=== PATIENT | male | born 1935 | race Caucasian/White ===

== ENCOUNTER → 2016-06-20 | Outpatient (CLI) | payer MEDICARE, BC ==
[2013-08-05 11:00] VITALS: BP 110/65
[~2016-06-20] MED LIST: AMIO200T2 PO; ASPI325T70 PO; CLOP75TA27 PO; FERR-26 PO; METO25TA4 PO; NAPR550T3 PO; OMEG1CAP6 PO; OMEP20TA PO; OXYC-323 PO
== END | disposition home or self-care (01) ==
LOC: EKG 13:12
PROVIDERS: ATTEND Internal Medicine Cardiovascular Disease
DX: R00.1 Bradycardia, unspecified (principal)
CPT/HCPCS: 93225

== ENCOUNTER 2019-11-10 09:56 | Observation (INO) | payer MEDICARE ==
[~2019-11-10] VITALS: Ht 175.3 cm; Wt 75.4 kg
[~2019-11-10 09:56] MED LIST changes: -AMIO200T2 PO; +AMIO200T4 PO; -CLOP75TA27 PO; +CLOP75TA57 PO; -FERR-26 PO; +FERR325T14 PO; +NAPR-677 PO; -NAPR550T3 PO; -OMEP20TA PO; +OMEP20TA8 PO; -OXYC-323 PO; +OXYC1TAB15 PO
[2019-11-10] MEDS ORDERED: ASPIRIN CHEWABLE 81 MG TABLET. PO ONE (10:45)
[2019-11-10 10:46] LABS: BASO % 1 % (0-3); EOS # 0.2 x10^3/uL (0.0-0.7); EOS % 3 % (0-3); HEMATOCRIT 40.6 % (39.0-53.0); HEMOGLOBIN 13.6 g/dL (13.0-17.5); LYMPH # 0.5 x10^3/uL (1.0-4.8); LYMPH % 10 % (24-48); MEAN CORPUSCULAR HEMOGLOBIN 30 pg (25-35); MEAN CORPUSCULAR HGB CONC 34 g/dL (31-37); MEAN CORPUSCULAR VOLUME 89 fL (79-100); MONO # 0.6 x10^3/uL (0.0-1.1); MONO % 13 % (0-9); NEUT # 3.3 x10^3/uL (1.8-7.7); NEUT % 73 % (31-73); PLATELET COUNT 161 x10^3/uL (140-400); RED BLOOD COUNT 4.55 x10^6/uL (4.30-5.70); RED CELL DISTRIBUTION WIDTH 14.4 % (11.5-14.5); WHITE BLOOD COUNT 4.5 x10^3/uL (4.0-11.0)
--- NOTE | 2019-11-10 10:47 | EKG ---
[facility] [address] [place] [address] Test Date: 2019-11-10 Test Time: 10:09:15 Pat Name: CHARLENE PAK Department: Room: Gender: M Sales Consultant Residential Manager: : 1935 Requested By: WALT AQUINO Order Number: [id number] Reading MD: Measurements Intervals [place] Rate: 54 P: 49 WV: 198 QRS: -37 QRSD: 102 T: 60 QT: 416 QTc: 396 Interpretive Statements SINUS RHYTHM ABNORMAL LEFT AXIS DEVIATION INCOMPLETE RIGHT BUNDLE BRANCH BLOCK ABNORMAL ECG RI6.02 No previous ECG available for comparison
--- NOTE | 2019-11-10 10:48 | PHYS DOC ---
Past Medical History Past Medical History: GERD, High Cholesterol, Prostatitis Past Surgical History: Coronary Bypass Surgery, Other Additional Past Surgical Histo: "SEVERAL STENTS" Smoking Status: Former Smoker Alcohol Use: Occasionally General Adult EDM: Chief Complaint: CHEST PAIN HPI: HPI: Patient is a 84 year old male who presents with chest pain. Patient was in his normal state of health until a little after 7 this morning when he had right- sided chest pain radiated to the center of the chest. Pain was described as a sharp in nature and 8 of 10 at the worst and currently 0. Pain was worse with walking. Patient denies any shortness of breath, nausea vomiting or recent illnesses. Patient states he was diaphoretic AT onset Review of Systems: Review of Systems: Constitutional: Denies fever or chills. [] Eyes: Denies change in visual acuity. [] HENT: Denies nasal congestion or sore throat. [] Respiratory: Denies cough or shortness of breath. [] Cardiovascular: Complains of chest pain but no edema GI: Denies abdominal pain, nausea, vomiting, bloody stools or diarrhea. [] : Denies dysuria. [] Musculoskeletal: Denies back pain or joint pain. [] Integument: Denies rash. [] Neurologic: Denies headache, focal weakness or sensory changes. [] Endocrine: Denies polyuria or polydipsia. [] Lymphatic: Denies swollen glands. [] Psychiatric: Denies depression or anxiety. [] Heart Score: HEART Score for Chest Pain: HEART Score for Chest Pain Response (Comments) Value History Moderately Suspicious 1 ECG Nonspecific Repolarizatio 1 Age > 65 2 Risk Factors >3 Risk Factors or Hx CAD 2 Troponin < Normal Limit 0 Total 6 Risk Factors: Risk Factors: DM, Current or recent (<one month) smoker, HTN, HLP, family history of CAD, obesity. Risk Scores: Score 0 - 3: 2.5% MACE over next 6 weeks - Discharge Home Score 4 - 6: 20.3% MACE over next 6 weeks - Admit for Clinical Observation Score 7 - 10: 72.7% MACE over next 6 weeks - Early Invasive Strategies Current Medications: Current Medications Medications (Trade) Dose Ordered Sig/Nate Start Time Stop Time Status Last Admin Dose Admin Aspirin (Aspirin Chewable) 324 mg 1X ONCE 11/10/19 10:45 9/10/20 10:46 DC Allergies: Allergies: Allergies Coded Allergies Type Severity Reaction Last Updated Verified No Known Drug Allergies 08/01/13 No Physical Exam: PE: Constitutional: Well developed, well nourished, no acute distress, non-toxic appearance. [] HENT: Normocephalic, atraumatic, bilateral external ears normal, no trismus nose normal. [] Eyes: PERRLA, EOMI, conjunctiva normal, no discharge. [] Neck: Normal range of motion, no tenderness, supple, no stridor. [] Cardiovascular:Heart rate regular rhythm, peripheral pulses intact, cap refill brisk Lungs & Thorax: Bilateral breath sounds clear, no respiratory distress Abdomen: soft, no tenderness, no masses, no pulsatile masses. [] Skin: Warm, dry, no erythema, no rash. [] Back: No tenderness, no CVA tenderness. [] Extremities: No tenderness, no cyanosis, no clubbing, ROM intact, no edema. [] Neurologic: Alert and oriented X 3, normal motor function, normal sensory function, no focal deficits noted. [] Psychologic: Affect normal, judgement normal, mood normal. [] Current Patient Data: Vital Signs: Vital Signs Date Time Temp Pulse Resp B/P (MAP) Pulse Ox O2 Delivery O2 Flow Rate FiO2 11/10/19 10:18 98.0 57 20 151/73 (99) 99 Room Air 98.0 EKG: EKG: [] EKG interpreted by me sinus bradycardia with a rate of 54 left axis deviation right bundle branch block nonspecific ST changes Radiology/Procedures: Radiology/Procedures: [][facility] [address] [place], [place] [id number] IMAGING REPORT Signed PATIENT: CHARLENE PAK ACCOUNT: [id number] : 1935 LOCATION: ER AGE: 84 SEX: M EXAM STATUS: REG ER ORD. PHYSICIAN: WALT AQUINO MD REASON: chest pain PROCEDURE: PORTABLE CHEST 1V PORTABLE CHEST 1V 11/10/2019 10:35 AM INDICATION: Chest pain COMPARISON: 07/19/2013 TECHNIQUE: Portable frontal view of the chest is provided. FINDINGS: The cardiomediastinal silhouette is within normal limits. Lungs are clear. Median sternotomy changes are present. There are no significant pleural effusions. There is no pulmonary vascular congestion. No pneumothorax. No suspicious osseous abnormality. IMPRESSION: There is no acute cardiopulmonary process. Electronically signed by: Emily Ruffin MD (11/10/2019 11:46 AM) [id number] DICTATED and SIGNED BY: EMILY RUFFIN MD DATE: 11/10/19 1146 Course & Med Decision Making: Course & Med Decision Making Pertinent Labs and Imaging studies reviewed. (See chart for details) [] 84-year-old male presents with chief complaint of chest pain. EKG shows no acute ischemic changes but due to his significant history of cardiac work-up was initiated and is reassuring but patient will need further observation hospital. Patient be admitted to for further evaluation and treatment. Che Disclaimer: Dragreyes Disclaimer: This electronic medical record was generated, in whole or in part, using a voice recognition dictation system. Departure Departure Impression: Primary Impression: Chest pain Disposition: ADMITTED INPATIENT Admitting Physician: SONG (Hema) Condition: STABLE Referrals: MAEGAN ERICKSON MD (PCP) Justicifation of Admission Dx: Justifications for Admission: Justification of Admission Dx: Yes (CHEST PAIN, LOREN) WALT AQUINO MD Nov 10, 2019 10:48
[2019-11-10 10:55] LABS: CALCIUM 8.9 mg/dL (8.5-10.1); CREATININE 1.3 mg/dL (0.7-1.3); GFR 52.7; POTASSIUM 4.1 mmol/L (3.5-5.1)
[2019-11-10 10:56] LABS: PROTHROMBIN TIME PATIENT 13.2 SEC (11.7-14.0)
[2019-11-10 11:01] LABS: ALBUMIN 3.7 g/dL (3.4-5.0); ALBUMIN/GLOBULIN RATIO 1.2 (1.0-1.7); MAGNESIUM 2.2 mg/dL (1.8-2.4); TOTAL BILIRUBIN 0.5 mg/dL (0.2-1.0); TOTAL PROTEIN 6.8 g/dL (6.4-8.2)
[2019-11-10 11:20] LABS: D-DIMER 0.31 ug/mlFEU (0.00-0.50)
--- NOTE | 2019-11-10 11:49 | RAD ---
PORTABLE CHEST 1V 11/10/2019 10:35 AM INDICATION: Chest pain COMPARISON: 07/19/2013 TECHNIQUE: Portable frontal view of the chest is provided. FINDINGS: The cardiomediastinal silhouette is within normal limits. Lungs are clear. Median sternotomy changes are present. There are no significant pleural effusions. There is no pulmonary vascular congestion. No pneumothorax. No suspicious osseous abnormality. IMPRESSION: There is no acute cardiopulmonary process. Electronically signed by: Laverne Ocampo MD (11/10/2019 11:46 AM) [id number]
[2019-11-10] MEDS ORDERED: ONDANSETRON PF 4 MG/2 ML VIAL. IV PRN ×2 (12:15→12:30)
[2019-11-10] MEDS ORDERED: LORazepam 0.5 MG TABLET PO PRN (12:30)
[2019-11-10] MEDS ORDERED: ALBUTEROL SULFATE 2.5 MG/3 ML NEBU. NEB PRN (12:30)
[2019-11-10] MEDS ORDERED: oxyCODONE/APAP 5/325 1 TAB TABLET PO SCH (12:30)
[2019-11-10] MEDS ORDERED: DOCUSATE SODIUM 100 MG CAPSULE. PO PRN (12:30)
[2019-11-10] MEDS ORDERED: ZOLPIDEM 5 MG TABLET. PO PRN (12:30)
[2019-11-10] MEDS ORDERED: guaiFENesin ORAL 200 MG/10 ML LIQUID. PO PRN (12:30)
[2019-11-10] MEDS ORDERED: ENOXAPARIN 40 MG/0.4 ML SYRINGE. SQ SCH (13:00)
--- NOTE | 2019-11-10 13:10 | PDOC2 ---
NICOLE CORONEL WAX PATTERN REPAIRER 11/10/19 1310: CARDIAC CONSULT DATE OF CONSULT Date of Consult DATE: 11/10/19 TIME: 13:08 REASON FOR CONSULT Reason for Consult: Chest pain REFERRING PHYSICIAN Referring Physician: Dr. Garrido SOURCE Source: Chart review, Patient HISTORY OF PRESENT ILLNESS HISTORY OF PRESENT ILLNESS This is an 84 yo male who presented secondary to right-sided chest pain. Patient reports stabbing pain developed in his right chest this morning around 7 am. Non-radiating. No associated SOA, dizziness, nausea, or palpitations. Did note some diaphoresis. No specific worsening or relieving factors. Pain resolved without intervention prior to arrival to ED. Patient has a history of CAD s/p CABG in 2013. Previously followed with Dr. Burt. Now follows with Dr. Dozier. Underwent PCI/stents x2 in November of 2018. No recent fevers/illness. Walks daily without any chest pain or limitations. PAST MEDICAL HISTORY Cardiovascular: CAD Musculoskeletal: Osteoarthritis Renal/: Other (renal calculi) PAST SURGICAL HISTORY Past Surgical History: CABG, Tonsillectomy FAMILY HISTORY Family History: Heart Disease SOCIAL HISTORY Smoke: No ALCOHOL: none Drugs: None Lives: with Family CURRENT MEDICATIONS CURRENT MEDICATIONS Current Medications Medications (Trade) Dose Ordered Sig/Nate Route PRN Reason Start Time Stop Time Status Last Admin Dose Admin Aspirin (Aspirin Chewable) 324 mg 1X ONCE PO 11/10/19 10:45 11/10/19 10:46 DC 11/10/19 11:01 ALLERGIES ALLERGIES: Coded Allergies: No Known Drug Allergies (Unverified , 08/01/13) ROS Review of System 14 point ROS conducted with pertinent positives noted above in HPI PHYSICAL EXAM General: Alert, Oriented X3, Cooperative, No acute distress HEENT: Atraumatic, Mucous membr. moist/pink Lungs: Clear to auscultation Heart: Regular rate, Normal S1, Normal S2, Other (2/6 systolic murmur) Abdomen: Soft, No tenderness Extremities: No edema, Normal pulses Skin: No significant lesion Neuro: Normal speech, Sensation intact, Cranial nerves 3-12 NL Psych/Mental Status: Mental status NL, Mood NL MUSCULOSKELETAL: Osteoarthritic changes both hands VITALS/I&O VITALS/I&O: Vital Signs Date Time Temp Pulse Resp B/P (MAP) Pulse Ox O2 Delivery O2 Flow Rate FiO2 9/10/20 10:18 98.0 57 20 151/73 (99) 99 Room Air 98.0 LABS Lab: Laboratory Tests Test 11/10/19 10:15 White Blood Count 4.5 x10^3/uL (4.0-11.0) Red Blood Count 4.55 x10^6/uL (4.30-5.70) Hemoglobin 13.6 g/dL (13.0-17.5) Hematocrit 40.6 % (39.0-53.0) Mean Corpuscular Volume 89 fL (79-100) Mean Corpuscular Hemoglobin 30 pg (25-35) Mean Corpuscular Hemoglobin Concent 34 g/dL (31-37) Red Cell Distribution Width 14.4 % (11.5-14.5) Platelet Count 161 x10^3/uL (140-400) Neutrophils (%) (Auto) 73 % (31-73) Lymphocytes (%) (Auto) 10 % (24-48) L Monocytes (%) (Auto) 13 % (0-9) H Eosinophils (%) (Auto) 3 % (0-3) Basophils (%) (Auto) 1 % (0-3) Neutrophils # (Auto) 3.3 x10^3/uL (1.8-7.7) Lymphocytes # (Auto) 0.5 x10^3/uL (1.0-4.8) L Monocytes # (Auto) 0.6 x10^3/uL (0.0-1.1) Eosinophils # (Auto) 0.2 x10^3/uL (0.0-0.7) Basophils # (Auto) 0.0 x10^3/uL (0.0-0.2) Prothrombin Time 13.2 SEC (11.7-14.0) Prothrombin Time INR 1.0 (0.8-1.1) D-Dimer (Noreen) 0.31 ug/mlFEU (0.00-0.50) Sodium Level 141 mmol/L (136-145) Potassium Level 4.1 mmol/L (3.5-5.1) Chloride Level 106 mmol/L (98-107) Carbon Dioxide Level 30 mmol/L (21-32) Anion Gap 5 (6-14) L Blood Urea Nitrogen 20 mg/dL (8-26) Creatinine 1.3 mg/dL (0.7-1.3) Estimated GFR (Cockcroft-Gault) 52.7 BUN/Creatinine Ratio 15 (6-20) Glucose Level 82 mg/dL (70-99) Calcium Level 8.9 mg/dL (8.5-10.1) Magnesium Level 2.2 mg/dL (1.8-2.4) Total Bilirubin 0.5 mg/dL (0.2-1.0) Aspartate Amino Transferase (AST) 20 U/L (15-37) Alanine Aminotransferase (ALT) 30 U/L (16-63) Alkaline Phosphatase 88 U/L (46-116) Troponin I Quantitative < 0.017 ng/mL (0.000-0.055) PO-Dpn-H-Type Natriuretic Peptide 220 pg/mL (0-449) Total Protein 6.8 g/dL (6.4-8.2) Albumin 3.7 g/dL (3.4-5.0) Albumin/Globulin Ratio 1.2 (1.0-1.7) Lipase 139 U/L (73-393) Laboratory Tests 11/10/19 10:15 Laboratory Tests 11/10/19 10:15 ECHOCARDIOGRAM ECHOCARDIOGRAM <Conclusion> The left ventricular systolic function is normal and the ejection fraction is within normal range. The Ejection Fraction is 56%. Transmitral Doppler flow pattern is Grade I-abnormal relaxation pattern. The left atrium size is normal. The right atrium size is normal. Doppler and Color Flow revealed mild aortic regurgitation. Doppler and Color Flow revealed mild mitral regurgitation. Doppler and Color Flow revealed mild tricuspid regurgitation. The PA pressure was estimated at 31 mmHg. Doppler and Color Flow revealed mild pulmonic valvular regurgitation. There is no evidence of significant pericardial effusion. DATE: 06/05/151809 HEART CATH HEART CATH Findings: Coronaries: The left main is normal. The LAD has a proximal 50% area stenosis and in the mid to distal segment its about 85% stenosed. The first diagonal is a long vessel and is 95% stenosis. The circumflex is a large codominant vessel that has 40-60% plaquing. The obtuse marginal seems to be a long vessel and is 100% occluded. The RCA is occluded proximally and it receives collaterals from the left revealing a long and good sized PDA and posterolateral branches. The ventriculogram shows a normal size left ventricle with a left ventricular ejection fraction of 45%. There was no gradient across the aortic valve and no significant mitral insufficiency was seen. Impression this patient has severe triple-vessel coronary artery disease. The case was discussed with Dr. Rae since I felt that the patient needed to go for CABG and Dr. Rae agree with the this approach but in order to allow the patient to walk pulled off I wanted to go ahead and try to open up what appeared to be the culprit vessel. This seemed to be the obtuse marginal. Therefore a left Michelle guiding catheter was utilized to engage the left main a guidewire was advanced into the circumflex and down the obtuse marginal across the area of total obstruction. This was all done after the patient had been fully heparinized. A 2.0 mm balloon was then brought over and angioplasty of the obtuse marginal was done the balloon was removed and I felt that there was still very significant residual disease present therefore a 2.5 mm balloon was brought over and then multiple inflations were done in the obtuse marginal after which the balloon was pulled back and I could see that the vessel was open but there was very poor distal flow. I felt that the poor distal flow was probably due to thrombosis of the small distal vessels. Therefore I decided to treat the patient with Integrilin and heparin as well as an intra-aortic balloon pump and then to allow the patient to cool off a workup with days and then to proceed with the bypass surgery. In view of this I changed the arterial sheath for the intra-aortic balloon pump sheath and then the intra-aortic balloon pump catheter was advanced over a guidewire once I was satisfied with its positioning the descending aorta we connected to the console obtaining good augmentation of the pressure the intra- aortic balloon pump catheter and the sheaths were sutured in place a dressing was applied to the groin and the patient was transferred to the intensive care unit for further care in stable condition. After the heparin and Integrilin were given and the intra-aortic balloon pump was inserted and was functioning the patient's chest pain was relieved and the ST segments normalized in the EKG. This patient needs coronary artery bypass surgery but he appears to be stable at this time therefore I think that we could allow him to cool off for a couple of days before going to surgery. We will support him with the balloon pump as well as anticoagulation until then. DATE: 07/30/13 4311 PREOPERATIVE DIAGNOSIS: Coronary artery disease, acute ST-segment elevation myocardial infarction, less than seven days. FINAL DIAGNOSIS: Coronary artery disease, acute ST-segment elevation myocardial infarction, less than seven days. OPERATIVE PROCEDURE: Coronary artery bypass grafting x5 with left internal artery mammary artery to the LAD, saphenous vein graft to OM, saphenous vein graft to RCA, and radial artery graft sequence to diagonal 1 and the diagonal 2. DATE OF SERVICE: 08/01/2013. ASSESSMENT/PLAN ASSESSMENT/PLAN 1. Chest pain, atypical; initial trop negative. EKG without significant acute changes 2. CAD s/p CABG 2013. PCI/stents x2 11/2018. Follows with Dr. Dozier with [facility]. 3. Bradycardia, sinus. Lowest 52. No pauses. 4. Dyslipidemia; statin Recommendations Trend troponin Lipids Echo to assess LV systolic function Resume secondary prevention including ASA/Plavix and atorvastatin No AV radha blocking agents with h/o bradycardia Obtain cardiac records from [facility] Supportive care Further pending above. SERGIO FOSS MD 11/10/19 1706: CARDIAC CONSULT ASSESSMENT/PLAN ASSESSMENT/PLAN The patient was seen and interviewed as well as examined at the bedside. The chart was reviewed. The case was discussed. Agree with the plan of care. NICOLE CORONEL APRN Nov 10, 2019 13:10 SERGIO FOSS MD Nov 10, 2019 17:06
[2019-11-10 13:30] VITALS: BP_SYST 140; BP_SYST 149; BP_DIAS 65; BP_DIAS 76
[2019-11-10] MEDS ORDERED: TAMS0.4C97 PO (13:37)
[2019-11-10] MEDS ORDERED: ASPI-630 PO (13:37)
[2019-11-10] MEDS ORDERED: LIPITOR80 MG PO (13:37)
[2019-11-10] MEDS ORDERED: TURM500C4 PO (13:38)
[2019-11-10 15:00] VITALS: BP 162/85
[2019-11-10 15:17] LABS: CHOLESTEROL/HDL RATIO 1.9
--- NOTE | 2019-11-10 16:47 | CARD ---
MR#: [id number] Date of Study: 11/10/2019 Ordering Physician: NICOLE CORONEL, Referring Physician: NICOLE CORONEL, Tech: Zeinab Suero APPROVED REPORT EXAM: Two-dimensional and M-mode echocardiogram with Doppler and color Doppler. Other Information Quality : AverageHR: 48bpm INDICATION Cardiac Disease: CAD Chest Pain Surgery/Intervention CABG: Date: 2013 2D DIMENSIONS Left Atrium(2D)2.9 (1.6-4.0cm)IVSd1.1 (0.7-1.1cm) Aortic Root(2D)3.5 (2.0-3.7cm)LVDd4.7 (3.9-5.9cm) LVOT Diameter2.0 (1.8-2.4cm)PWd0.8 (0.7-1.1cm) LVDs3.8 (2.5-4.0cm)FS (%) 19.6 % SV42.1 mlLVEF(%)40.3 (>50%) Aortic Valve AoV Peak Leonel.124.4cm/sAoV VTI30.6cm AO Peak GR.6.2mmHgLVOT VTI 17.63cm AO Mean GR.3mmHgAI P 1/2 [id number] Mitral Valve MV E Qgjxblxh98.2cm/sMV E Peak Gr.2mmHg MV DECEL [id number] A Ssgbzzdk00.3cm/s MV E Mean Gr.1mmHgE/A Ratio1.1 TDI Lateral E' P. V7.02cm/sMedial E' P. V8.88cm/s E/Lateral E'8.4E/Medial E'6.7 Tricuspid Valve TR P. [id number]/sRAP [id number] TR Peak Gr.[id number] LEFT VENTRICLE The left ventricle is normal size. There is borderline to mild concentric left ventricular hypertroph y. The left ventricular systolic function is mildly decreased. EF 45-50% Septal motion consistent wit h conduction abnormality. Otherwise, mild global hypokinesis. Transmitral Doppler flow pattern is Gra de II-pseudonormal filling dynamics. RIGHT VENTRICLE The right ventricle is normal size. There is normal right ventricular wall thickness. The right ventr icular systolic function is normal. ATRIA The left atrium size is normal. The right atrium is mildly dilated. The interatrial septum is intact with no evidence for an atrial septal defect or patent foramen ovale as noted on 2-D or Doppler imagi ng. AORTIC VALVE The aortic valve is sclerotic and trileaflet. Doppler and Color Flow revealed trace aortic regurgitat ion. There is no significant aortic valvular stenosis. Calculated aortic valve area is 1.76 cm2 with maximum pressure gradient of 8 mmHg and mean pressure gradient of 4 mmHg. MITRAL VALVE The mitral valve is normal in structure and function. There is no evidence of mitral valve prolapse. There is no mitral valve stenosis. Doppler and Color-flow revealed trace mitral regurgitation. TRICUSPID VALVE The tricuspid valve is normal in structure and function. Doppler and Color Flow revealed trace tricus pid regurgitation with an estimated PAP of 27 mmHg. There is no tricuspid valve stenosis. PULMONIC VALVE The pulmonic valve is not well visualized. Doppler and Color Flow revealed no pulmonic valvular regur gitation. There is no pulmonic valvular stenosis. GREAT VESSELS The aortic root is normal in size. The IVC is normal in size and collapses >50% with inspiration. PERICARDIAL EFFUSION There is no evidence of significant pericardial effusion. Critical Notification Critical Value: No <Conclusion> The left ventricular systolic function is mildly decreased. EF 45-50% Septal motion consistent with conduction abnormality. Otherwise, mild global hypokinesis. Signed by : Chris Rao, Electronically Approved : 11/10/2019 16:46:24
[2019-11-10] MEDS ORDERED: FERROUS SULFATE 325 MG TABLET. PO SCH (17:00)
--- NOTE | 2019-11-10 17:51 | PDOC1 ---
History and Physical Date of Admission Date of Admission 11/10/2019 Identification/Chief Complaint Chief Complaint My chest hurts Source Source: Chart review, Patient History of Present Illness History of Present Illness Patient is an 84 year old male with past medical history of CAD status post CABG in 2013 and PCI after his surgery with stents deployed for flow limiting lesions. Patient receives his cardiological care at an outside facility, he last saw his it technical specialist about 4 months ago and no changes were made to his medications and was told e"everything was fine" Today after breakfast patient had sharp sensation over the epigastrium with no radiation to the arm jaw no associated nausea diaphoresis or sensation of impending doom. he was sitting watching TV. he denies recent history of angina type of symptoms, no PND no orthopnea, no peripheral edema, no palpitations. No recent cough sputum production or sick contacts. He denies dyspnea on exertion. He is being admitted at the request of the ED for acs rule out At the time of my encounter the patient is in no apparent idstress and his symptoms have subsided. The discomfort lasted about hour and ahalf.he did not self medicate at home. Past Medical History Cardiovascular: CAD Pulmonary: No pertinent hx GI: Gastritis Heme/Onc: No pertinent hx Hepatobiliary: No pertinent hx Psych: No pertinent hx Rheumatologic: No pertinent hx Infectious disease: No pertinent hx Renal/: Other (renal calculi) Past Surgical History Past Surgical History: CABG, Tonsillectomy Family History Family History: Heart Disease Social History Smoke: No ALCOHOL: none Drugs: None Current Problem List Problem List Problems Medical Problems: (1) Chest pain Status: Acute Current Medications Current Medications Current Medications Medications (Trade) Dose Ordered Sig/Nate Start Time Stop Time Status Last Admin Dose Admin Albuterol Sulfate (Ventolin Neb Soln) 2.5 mg PRN Q4HRS PRN 11/10/19 12:30 Amiodarone HCl (Cordarone) 200 mg DAILY 11/11/19 09:00 11/10/19 14:29 DC Aspirin (Aspirin Chewable) 81 mg DAILY 11/11/19 09:00 Aspirin (Ecotrin) 325 mg [id number] 11/11/19 08:00 11/10/19 14:30 DC Atorvastatin Calcium (Lipitor) 80 mg QHS 11/10/19 21:00 Clopidogrel Bisulfate (Plavix) 75 mg DAILY 11/11/19 09:00 Docusate Sodium (Colace) 100 mg PRN BID PRN 11/10/19 12:30 Enoxaparin Sodium (Lovenox 40mg Syringe) 40 mg Q24H 11/10/19 13:00 Ferrous Sulfate (Feosol) 325 mg BIDWMEALS 11/10/19 17:00 11/10/19 14:58 DC Fish Oil (Fish Oil) 1,000 mg BID 11/10/19 21:00 Guaifenesin (Robitussin) 200 mg PRN Q4HRS PRN 11/10/19 12:30 Lorazepam (Ativan) 0.5 mg PRN Q4HRS PRN 11/10/19 12:30 Metoprolol Tartrate (Lopressor) 25 mg BID 11/10/19 21:00 11/10/19 14:29 DC Naproxen (Naprosyn) 500 mg BID 11/10/19 21:00 Non-Formulary Medication (Turmeric/ Turmeric Root Extract (Turmeric 500 mg Capsule)) 1 cap BID 11/10/19 21:00 UNV Ondansetron HCl (Zofran) 4 mg PRN Q4HRS PRN 11/10/19 12:30 Oxycodone/ Acetaminophen (Percocet 5/325) 1 tab Q4HRS 11/10/19 12:30 11/10/19 14:58 DC Pantoprazole Sodium (Protonix) 40 mg DAILYAC 11/11/19 07:30 Tamsulosin HCl (Flomax) 0.4 mg DAILY 11/11/19 09:00 Zolpidem Tartrate (Ambien) 5 mg PRN QHS PRN 11/10/19 12:30 Allergies Allergies Allergies Coded Allergies Type Severity Reaction Last Updated Verified No Known Drug Allergies 08/01/13 No ROS Review of System CONSTITUTIONAL: No fever or chills EYES: No recent changes SKIN: No rash or itching CARDIOVASCULAR: No chest pain, syncope, palpitations, or edema RESPIRATORY: No SOB or cough GASTROINTESTINAL: No nausea, vomiting or abdominal pain NEUROLOGICAL: No headaches or weakness ENDOCRINE: No cold or heat intolerance GENITOURINARY: No urgency or frequency of urination MUSCULOSKELETAL: No back pain or joint pain LYMPHATICS: No enlarged lymph nodes PSYCHIATRIC: No anxiety or depression Physical Exam Physical Exam GEN.: No apparent distress. Alert and oriented. HEENT: Head is normocephalic, atraumatic NECK: Supple. LUNGS: Clear to auscultation. HEART: RRR, S1, S2 present. Peripheral pulses intact ABDOMEN: Soft, nontender. Positive bowel sounds. EXTREMITIES: Without any cyanosis. NEUROLOGIC: Normal speech, normal tone PSYCHIATRIC: Normal affect, normal mood. SKIN: No ulcerations Vitals Vitals Vital Signs Date Time Temp Pulse Resp B/P (MAP) Pulse Ox O2 Delivery O2 Flow Rate FiO2 11/10/19 16:50 98 Room Air 11/10/19 15:00 98.5 83 20 162/85 (110) 98.5 Labs Labs Laboratory Tests Test 11/10/19 10:15 11/10/19 14:55 White Blood Count 4.5 x10^3/uL (4.0-11.0) Red Blood Count 4.55 x10^6/uL (4.30-5.70) Hemoglobin 13.6 g/dL (13.0-17.5) Hematocrit 40.6 % (39.0-53.0) Mean Corpuscular Volume 89 fL (79-100) Mean Corpuscular Hemoglobin 30 pg (25-35) Mean Corpuscular Hemoglobin Concent 34 g/dL (31-37) Red Cell Distribution Width 14.4 % (11.5-14.5) Platelet Count 161 x10^3/uL (140-400) Neutrophils (%) (Auto) 73 % (31-73) Lymphocytes (%) (Auto) 10 % (24-48) Monocytes (%) (Auto) 13 % (0-9) Eosinophils (%) (Auto) 3 % (0-3) Basophils (%) (Auto) 1 % (0-3) Neutrophils # (Auto) 3.3 x10^3/uL (1.8-7.7) Lymphocytes # (Auto) 0.5 x10^3/uL (1.0-4.8) Monocytes # (Auto) 0.6 x10^3/uL (0.0-1.1) Eosinophils # (Auto) 0.2 x10^3/uL (0.0-0.7) Basophils # (Auto) 0.0 x10^3/uL (0.0-0.2) Prothrombin Time 13.2 SEC (11.7-14.0) Prothromb Time International Ratio 1.0 (0.8-1.1) D-Dimer (Noreen) 0.31 ug/mlFEU (0.00-0.50) Sodium Level 141 mmol/L (136-145) Potassium Level 4.1 mmol/L (3.5-5.1) Chloride Level 106 mmol/L (98-107) Carbon Dioxide Level 30 mmol/L (21-32) Anion Gap 5 (6-14) Blood Urea Nitrogen 20 mg/dL (8-26) Creatinine 1.3 mg/dL (0.7-1.3) Estimated GFR (Cockcroft-Gault) 52.7 BUN/Creatinine Ratio 15 (6-20) Glucose Level 82 mg/dL (70-99) Calcium Level 8.9 mg/dL (8.5-10.1) Magnesium Level 2.2 mg/dL (1.8-2.4) Total Bilirubin 0.5 mg/dL (0.2-1.0) Aspartate Amino Transf (AST/SGOT) 20 U/L (15-37) Alanine Aminotransferase (ALT/SGPT) 30 U/L (16-63) Alkaline Phosphatase 88 U/L (46-116) Troponin I Quantitative < 0.017 ng/mL (0.000-0.055) < 0.017 ng/mL (0.000-0.055) FH-Ikw-L-Type Natriuretic Peptide 220 pg/mL (0-449) Total Protein 6.8 g/dL (6.4-8.2) Albumin 3.7 g/dL (3.4-5.0) Albumin/Globulin Ratio 1.2 (1.0-1.7) Triglycerides Level 39 mg/dL (0-150) Cholesterol Level 109 mg/dL (0-200) LDL Cholesterol, Calculated 43 mg/dL (0-100) VLDL Cholesterol, Calculated 8 mg/dL (0-40) Non-HDL Cholesterol Calculated 51 mg/dL (0-129) HDL Cholesterol 58 mg/dL (40-60) Cholesterol/HDL Ratio 1.9 Lipase 139 U/L (73-393) Thyroid Stimulating Hormone (TSH) 4.897 uIU/mL (0.358-3.74) Laboratory Tests Test 11/10/19 10:15 11/10/19 14:55 White Blood Count 4.5 x10^3/uL (4.0-11.0) Red Blood Count 4.55 x10^6/uL (4.30-5.70) Hemoglobin 13.6 g/dL (13.0-17.5) Hematocrit 40.6 % (39.0-53.0) Mean Corpuscular Volume 89 fL (79-100) Mean Corpuscular Hemoglobin 30 pg (25-35) Mean Corpuscular Hemoglobin Concent 34 g/dL (31-37) Red Cell Distribution Width 14.4 % (11.5-14.5) Platelet Count 161 x10^3/uL (140-400) Neutrophils (%) (Auto) 73 % (31-73) Lymphocytes (%) (Auto) 10 % (24-48) Monocytes (%) (Auto) 13 % (0-9) Eosinophils (%) (Auto) 3 % (0-3) Basophils (%) (Auto) 1 % (0-3) Neutrophils # (Auto) 3.3 x10^3/uL (1.8-7.7) Lymphocytes # (Auto) 0.5 x10^3/uL (1.0-4.8) Monocytes # (Auto) 0.6 x10^3/uL (0.0-1.1) Eosinophils # (Auto) 0.2 x10^3/uL (0.0-0.7) Basophils # (Auto) 0.0 x10^3/uL (0.0-0.2) Prothrombin Time 13.2 SEC (11.7-14.0) Prothromb Time International Ratio 1.0 (0.8-1.1) D-Dimer (Noreen) 0.31 ug/mlFEU (0.00-0.50) Sodium Level 141 mmol/L (136-145) Potassium Level 4.1 mmol/L (3.5-5.1) Chloride Level 106 mmol/L (98-107) Carbon Dioxide Level 30 mmol/L (21-32) Anion Gap 5 (6-14) Blood Urea Nitrogen 20 mg/dL (8-26) Creatinine 1.3 mg/dL (0.7-1.3) Estimated GFR (Cockcroft-Gault) 52.7 BUN/Creatinine Ratio 15 (6-20) Glucose Level 82 mg/dL (70-99) Calcium Level 8.9 mg/dL (8.5-10.1) Magnesium Level 2.2 mg/dL (1.8-2.4) Total Bilirubin 0.5 mg/dL (0.2-1.0) Aspartate Amino Transf (AST/SGOT) 20 U/L (15-37) Alanine Aminotransferase (ALT/SGPT) 30 U/L (16-63) Alkaline Phosphatase 88 U/L (46-116) Troponin I Quantitative < 0.017 ng/mL (0.000-0.055) < 0.017 ng/mL (0.000-0.055) TW-Scc-R-Type Natriuretic Peptide 220 pg/mL (0-449) Total Protein 6.8 g/dL (6.4-8.2) Albumin 3.7 g/dL (3.4-5.0) Albumin/Globulin Ratio 1.2 (1.0-1.7) Triglycerides Level 39 mg/dL (0-150) Cholesterol Level 109 mg/dL (0-200) LDL Cholesterol, Calculated 43 mg/dL (0-100) VLDL Cholesterol, Calculated 8 mg/dL (0-40) Non-HDL Cholesterol Calculated 51 mg/dL (0-129) HDL Cholesterol 58 mg/dL (40-60) Cholesterol/HDL Ratio 1.9 Lipase 139 U/L (73-393) Thyroid Stimulating Hormone (TSH) 4.897 uIU/mL (0.358-3.74) Images Images IMAGING REPORT Signed PATIENT: CHARLENE PAK ACCOUNT: [id number] : 1935 LOCATION: ER AGE: 84 SEX: M EXAM STATUS: REG ER ORD. PHYSICIAN: WALT AQUINO MD REASON: chest pain PROCEDURE: PORTABLE CHEST 1V PORTABLE CHEST 1V 11/10/2019 10:35 AM INDICATION: Chest pain COMPARISON: 07/19/2013 TECHNIQUE: Portable frontal view of the chest is provided. FINDINGS: The cardiomediastinal silhouette is within normal limits. Lungs are clear. Median sternotomy changes are present. There are no significant pleural effusions. There is no pulmonary vascular congestion. No pneumothorax. No suspicious osseous abnormality. IMPRESSION: There is no acute cardiopulmonary process. Electronically signed by: Laverne Ocampo MD (11/10/2019 11:46 AM) [id number] VTE Prophylaxis Ordered VTE Prophylaxis Devices: No VTE Pharmacological Prophylaxi: Yes Assessment/Plan Assessment/Plan Chest pain rule out ACS Essential hypertension History of CAD status post CABG Dyslipidemia Plan trend troponin lipid panel in the am consult cardiology resume home medications DVT prophylaxis with Lovenox Justifications for Admission Other Justification KOREY JARA MD Nov 10, 2019 17:51
[2019-11-10 19:38] VITALS: BP 124/72
[2019-11-10] MEDS: NAPROXEN 500 MG TABLET PO SCH (20:47)
[2019-11-10] MEDS: OMEGA-3 FATTY ACIDS/FISH OIL 1,000 MG CAPSULE. PO SCH (20:52)
[2019-11-10] MEDS ORDERED: TURMERIC PO SCH (21:00)
[2019-11-10] MEDS ORDERED: TURMERIC ROOT EXTRACT PO SCH (21:00)
[2019-11-10] MEDS ORDERED: METOPROLOL TART IMMED RELEASE 25 MG TABLET. PO SCH (21:00)
[2019-11-10] MEDS ORDERED: ATORVASTATIN CALCIUM 40 MG TABLET. PO SCH (21:00)
[2019-11-10 23:04] VITALS: BP 119/68
[2019-11-11 02:18] VITALS: BP 115/71
[2019-11-11 07:19] VITALS: BP 113/69
[2019-11-11] MEDS ORDERED: PANTOPRAZOLE 40 MG TABLET.DR. PO SCH (07:30)
[2019-11-11] MEDS ORDERED: ASPIRIN ENTERIC COATED 325 MG TABLET.DR. PO SCH (08:00)
--- NOTE | 2019-11-11 08:17 | PDOC ---
ANNI AGGARWAL [employer] 11/11/19 0817: CARDIO Progress Notes Date and Time Date of Service 11/11/2019 Time of Evaluation 0910 Subjective Subjective: No Chest Pain, No shortness of breath, No Palpitations Vitals Vitals Vital Signs Date Time Temp Pulse Resp B/P (MAP) Pulse Ox O2 Delivery O2 Flow Rate FiO2 11/11/19 07:19 97.8 52 18 113/69 (84) 97 Room Air 97.8 Weight Weight [ ] Input and Output Intake and Output Intake and Output 11/11/19 07:00 Intake Total 1250 ml Balance 1250 ml Intake Oral 1250 ml # Voids 3 Laboratory Labs Laboratory Tests Test 11/10/19 10:15 11/10/19 14:55 11/10/19 19:44 White Blood Count 4.5 x10^3/uL (4.0-11.0) Red Blood Count 4.55 x10^6/uL (4.30-5.70) Hemoglobin 13.6 g/dL (13.0-17.5) Hematocrit 40.6 % (39.0-53.0) Mean Corpuscular Volume 89 fL (79-100) Mean Corpuscular Hemoglobin 30 pg (25-35) Mean Corpuscular Hemoglobin Concent 34 g/dL (31-37) Red Cell Distribution Width 14.4 % (11.5-14.5) Platelet Count 161 x10^3/uL (140-400) Neutrophils (%) (Auto) 73 % (31-73) Lymphocytes (%) (Auto) 10 % (24-48) Monocytes (%) (Auto) 13 % (0-9) Eosinophils (%) (Auto) 3 % (0-3) Basophils (%) (Auto) 1 % (0-3) Neutrophils # (Auto) 3.3 x10^3/uL (1.8-7.7) Lymphocytes # (Auto) 0.5 x10^3/uL (1.0-4.8) Monocytes # (Auto) 0.6 x10^3/uL (0.0-1.1) Eosinophils # (Auto) 0.2 x10^3/uL (0.0-0.7) Basophils # (Auto) 0.0 x10^3/uL (0.0-0.2) Prothrombin Time 13.2 SEC (11.7-14.0) Prothromb Time International Ratio 1.0 (0.8-1.1) D-Dimer (Noreen) 0.31 ug/mlFEU (0.00-0.50) Sodium Level 141 mmol/L (136-145) Potassium Level 4.1 mmol/L (3.5-5.1) Chloride Level 106 mmol/L (98-107) Carbon Dioxide Level 30 mmol/L (21-32) Anion Gap 5 (6-14) Blood Urea Nitrogen 20 mg/dL (8-26) Creatinine 1.3 mg/dL (0.7-1.3) Estimated GFR (Cockcroft-Gault) 52.7 BUN/Creatinine Ratio 15 (6-20) Glucose Level 82 mg/dL (70-99) Calcium Level 8.9 mg/dL (8.5-10.1) Magnesium Level 2.2 mg/dL (1.8-2.4) Total Bilirubin 0.5 mg/dL (0.2-1.0) Aspartate Amino Transf (AST/SGOT) 20 U/L (15-37) Alanine Aminotransferase (ALT/SGPT) 30 U/L (16-63) Alkaline Phosphatase 88 U/L (46-116) Troponin I Quantitative < 0.017 ng/mL (0.000-0.055) < 0.017 ng/mL (0.000-0.055) < 0.017 ng/mL (0.000-0.055) KR-Qzc-I-Type Natriuretic Peptide 220 pg/mL (0-449) Total Protein 6.8 g/dL (6.4-8.2) Albumin 3.7 g/dL (3.4-5.0) Albumin/Globulin Ratio 1.2 (1.0-1.7) Triglycerides Level 39 mg/dL (0-150) Cholesterol Level 109 mg/dL (0-200) LDL Cholesterol, Calculated 43 mg/dL (0-100) VLDL Cholesterol, Calculated 8 mg/dL (0-40) Non-HDL Cholesterol Calculated 51 mg/dL (0-129) HDL Cholesterol 58 mg/dL (40-60) Cholesterol/HDL Ratio 1.9 Lipase 139 U/L (73-393) Thyroid Stimulating Hormone (TSH) 4.897 uIU/mL (0.358-3.74) Physical Exam HEENT: Neck Supple W Full Motion Chest: Symmetric LUNGS: Clear to Auscultation Heart: S1S2, RRR (SR/SB) Abdomen: Soft N/T Extremities: No Calf Tenderness Neurology: alert, oriented, follow commands Assessment Assessment 1. Atypical CP: trops nml, no significnat EKG changes. No further recurrence 2. CAD s/p CABG 2013. PCI/stents x2 11/2018. Follows with Dr. Dozier with [facility] 3. Asymptomatic Bradycardia, Lowest upper 40s. No pauses, no heart blocks 4. Dyslipidemia: well controlled 5. Cardiomyopathy: EF 45-50 Recommendations 1. Will obtain prior TTE if available for comparison otherwise consider outpt MPI. Will defer further to his primary manager sustainability 2. Resume secondary prevention including ASA/Plavix and atorvastatin 3. No AV radha blocking agents with h/o bradycardia 4. Anticipate DC today Justicifation of Admission Dx: Justifications for Admission: Justification of Admission Dx: Yes (CHEST PAIN, LOREN) SERGIO FOSS MD 11/11/19 1833: ANNI AGGARWAL APRN Nov 11, 2019 08:17 SERGIO FOSS MD Nov 11, 2019 18:33
[2019-11-11] MEDS: OMEGA-3 FATTY ACIDS/FISH OIL 1,000 MG CAPSULE. PO SCH (08:20)
[2019-11-11] MEDS: NAPROXEN 500 MG TABLET PO SCH (08:22)
[2019-11-11] MEDS ORDERED: AMIODARONE HCL 200 MG TABLET. PO SCH (09:00)
[2019-11-11] MEDS ORDERED: CLOPIDOGREL BISULFATE 75 MG TABLET PO SCH (09:00)
[2019-11-11] MEDS ORDERED: TAMSULOSIN 0.4 MG CAP.ER.24H. PO SCH (09:00)
[2019-11-11] MEDS ORDERED: ASPIRIN CHEWABLE 81 MG TABLET. PO SCH (09:00)
[2019-11-11 10:30] VITALS: BP 116/60
--- NOTE | 2019-11-11 10:51 | NUR ---
SS following for discharge planning. SS reviewed pt chart and discussed with pt RN. Pt is from home with spouse and is currently on room air. Discharge order on the chart for home with self care.
--- NOTE | 2019-11-11 12:15 | NUR ---
Discharge Note: CHARLENE PAK [address] [place] [address] Discharge instructions and discharge home medications reviewed with Patient and a copy given. All questions have been answered and understanding verbalized. The following instructions and handouts were given: discharge instructions, follow ups, CP info, bradycardia info. Discontinued lines and drains: Peripheral IV intact. Patient discharged to Home or Self Care with Family Member via [facility] at 1215.
--- NOTE | 2019-11-11 12:16 | PDOC3 ---
Discharge Summary Visit Information Date of Admission: Nov 10, 2019 Date of Discharge: Nov 11, 2019 Admitting Diagnosis Comment: Chest pain rule out ACS Essential hypertension History of CAD status post CABG Dyslipidemia Final Diagnosis Problems Medical Problems: (1) Chest pain ACS ruled out Status: Acute 1. Atypical CP: trops nml, no significnat EKG changes. No further recurrence 2. CAD s/p CABG 2013. PCI/stents x2 11/2018. Follows with Dr. Dozier with [employer] [facility] 3. Asymptomatic Bradycardia, Lowest upper 40s. No pauses, no heart blocks 4. Dyslipidemia: well controlled 5. Cardiomyopathy: EF 45-50 Brief Hospital Course Allergies Allergies Coded Allergies Type Severity Reaction Last Updated Verified No Known Drug Allergies 08/01/13 No Vital Signs Vital Signs Date Time Temp Pulse Resp B/P (MAP) Pulse Ox O2 Delivery O2 Flow Rate FiO2 11/11/19 10:30 98.0 58 18 116/60 (78) 98 Room Air 98.0 Lab Results Laboratory Tests Test 11/10/19 10:15 11/10/19 14:55 11/10/19 19:44 White Blood Count 4.5 x10^3/uL (4.0-11.0) Red Blood Count 4.55 x10^6/uL (4.30-5.70) Hemoglobin 13.6 g/dL (13.0-17.5) Hematocrit 40.6 % (39.0-53.0) Mean Corpuscular Volume 89 fL (79-100) Mean Corpuscular Hemoglobin 30 pg (25-35) Mean Corpuscular Hemoglobin Concent 34 g/dL (31-37) Red Cell Distribution Width 14.4 % (11.5-14.5) Platelet Count 161 x10^3/uL (140-400) Neutrophils (%) (Auto) 73 % (31-73) Lymphocytes (%) (Auto) 10 % (24-48) Monocytes (%) (Auto) 13 % (0-9) Eosinophils (%) (Auto) 3 % (0-3) Basophils (%) (Auto) 1 % (0-3) Neutrophils # (Auto) 3.3 x10^3/uL (1.8-7.7) Lymphocytes # (Auto) 0.5 x10^3/uL (1.0-4.8) Monocytes # (Auto) 0.6 x10^3/uL (0.0-1.1) Eosinophils # (Auto) 0.2 x10^3/uL (0.0-0.7) Basophils # (Auto) 0.0 x10^3/uL (0.0-0.2) Prothrombin Time 13.2 SEC (11.7-14.0) Prothromb Time International Ratio 1.0 (0.8-1.1) D-Dimer (Noreen) 0.31 ug/mlFEU (0.00-0.50) Sodium Level 141 mmol/L (136-145) Potassium Level 4.1 mmol/L (3.5-5.1) Chloride Level 106 mmol/L (98-107) Carbon Dioxide Level 30 mmol/L (21-32) Anion Gap 5 (6-14) Blood Urea Nitrogen 20 mg/dL (8-26) Creatinine 1.3 mg/dL (0.7-1.3) Estimated GFR (Cockcroft-Gault) 52.7 BUN/Creatinine Ratio 15 (6-20) Glucose Level 82 mg/dL (70-99) Calcium Level 8.9 mg/dL (8.5-10.1) Magnesium Level 2.2 mg/dL (1.8-2.4) Total Bilirubin 0.5 mg/dL (0.2-1.0) Aspartate Amino Transf (AST/SGOT) 20 U/L (15-37) Alanine Aminotransferase (ALT/SGPT) 30 U/L (16-63) Alkaline Phosphatase 88 U/L (46-116) Troponin I Quantitative < 0.017 ng/mL (0.000-0.055) < 0.017 ng/mL (0.000-0.055) < 0.017 ng/mL (0.000-0.055) RP-Fcu-L-Type Natriuretic Peptide 220 pg/mL (0-449) Total Protein 6.8 g/dL (6.4-8.2) Albumin 3.7 g/dL (3.4-5.0) Albumin/Globulin Ratio 1.2 (1.0-1.7) Triglycerides Level 39 mg/dL (0-150) Cholesterol Level 109 mg/dL (0-200) LDL Cholesterol, Calculated 43 mg/dL (0-100) VLDL Cholesterol, Calculated 8 mg/dL (0-40) Non-HDL Cholesterol Calculated 51 mg/dL (0-129) HDL Cholesterol 58 mg/dL (40-60) Cholesterol/HDL Ratio 1.9 Lipase 139 U/L (73-393) Thyroid Stimulating Hormone (TSH) 4.897 uIU/mL (0.358-3.74) Laboratory Tests Test 11/10/19 14:55 11/10/19 19:44 Troponin I Quantitative < 0.017 ng/mL (0.000-0.055) < 0.017 ng/mL (0.000-0.055) Brief Hospital Course History of Present Illness Patient is an 84 year old male with past medical history of CAD status post CABG in 2014 and PCI after his surgery with stents deployed for flow limiting lesions. Patient receives his cardiological care at an outside facility, he last saw his teacher assistant about 4 months ago and no changes were made to his medications and was told e"everything was fine" Today after breakfast patient had sharp sensation over the epigastrium with no radiation to the arm jaw no associated nausea diaphoresis or sensation of impending doom. he was sitting watching TV. he denies recent history of angina type of symptoms, no PND no orthopnea, no peripheral edema, no palpitations. No recent cough sputum production or sick contacts. He denies dyspnea on exertion. He is being admitted at the request of the ED for acs rule out Patient had a very uneventful hospital stay. The patient had an echocardiogram as part of his evaluation while he was with us, his left ventricular systolic function mildly decreased that 45 to 50% in the patient records from outside were also reviewed. Her sql server consultant deemed him appropriate for discharge and instructed him to follow-up with his primary teacher assistant Dr. Dozier. He already has an appointment with him next month, signs and symptoms of concern when to seek medical attention were discussed with the patient who acknowledged understanding and is quite versed in the matter. Physical Exam GEN.: No apparent distress. Alert and oriented. HEENT: Head is normocephalic, atraumatic NECK: Supple. LUNGS: Clear to auscultation. HEART: RRR, S1, S2 present. Peripheral pulses intact ABDOMEN: Soft, nontender. Positive bowel sounds. EXTREMITIES: Without any cyanosis. NEUROLOGIC: Normal speech, normal tone PSYCHIATRIC: Normal affect, normal mood. SKIN: No ulcerations Assessment Assessment IMAGING REPORT Signed PATIENT: CHARLENE PAK ACCOUNT: [id number] : 1935 LOCATION: [address] AGE: 84 SEX: M EXAM STATUS: ADM IN ORD. PHYSICIAN: NICOLE CORONEL APRN REASON: CP, CAD PROCEDURE: [id number] ECHOCARDIOGRAM MR#: [id number] [facility] Date of Study: 11/10/2019 Ordering Physician: NICOLE CORONEL, Referring Physician: NICOLE CORONEL, Tech: Zeinab Suero APPROVED REPORT EXAM: Two-dimensional and M-mode echocardiogram with Doppler and color Doppler. Other Information Quality : Average HR: 48bpm INDICATION Cardiac Disease: CAD Chest Pain Surgery/Intervention CABG: Date: 2013 2D DIMENSIONS Left Atrium(2D) 2.9 (1.6-4.0cm) IVSd 1.1 (0.7-1.1cm) Aortic Root(2D) 3.5 (2.0-3.7cm) LVDd 4.7 (3.9-5.9cm) LVOT Diameter 2.0 (1.8-2.4cm) PWd 0.8 (0.7-1.1cm) LVDs 3.8 (2.5-4.0cm) FS (%) 19.6 % SV 42.1 ml LVEF(%) 40.3 (>50%) Aortic Valve AoV Peak Leonel. 124.4cm/s AoV VTI 30.6cm AO Peak GR. 6.2mmHg LVOT VTI 17.63cm AO Mean GR. 3mmHg AI P 1/2 Time 832ms Mitral Valve MV E Velocity 59.2cm/s MV E Peak Gr. 2mmHg MV DECEL TIME 200ms MV A Velocity 56.3cm/s MV E Mean Gr. 1mmHg E/A Ratio 1.1 TDI Lateral E' P. V 7.02cm/s Medial E' P. V 8.88cm/s E/Lateral E' 8.4 E/Medial E' 6.7 Tricuspid Valve TR P. Velocity 243cm/s RAP ESTIMATE 3mmHg TR Peak Gr. 24mmHg RVSP 27mmHg LEFT VENTRICLE The left ventricle is normal size. There is borderline to mild concentric left ventricular hypertrophy. The left ventricular systolic function is mildly decreased. EF 45-50% Septal motion consistent with conduction abnormality. Otherwise, mild global hypokinesis. Transmitral Doppler flow pattern is Grade II-pseudonormal filling dynamics. RIGHT VENTRICLE The right ventricle is normal size. There is normal right ventricular wall thickness. The right ventricular systolic function is normal. ATRIA The left atrium size is normal. The right atrium is mildly dilated. The interatrial septum is intact with no evidence for an atrial septal defect or patent foramen ovale as noted on 2-D or Doppler imaging. AORTIC VALVE The aortic valve is sclerotic and trileaflet. Doppler and Color Flow revealed trace aortic regurgitation. There is no significant aortic valvular stenosis. Calculated aortic valve area is 1.76 cm2 with maximum pressure gradient of 8 mmHg and mean pressure gradient of 4 mmHg. MITRAL VALVE The mitral valve is normal in structure and function. There is no evidence of mitral valve prolapse. There is no mitral valve stenosis. Doppler and Color-flow revealed trace mitral regurgitation. TRICUSPID VALVE The tricuspid valve is normal in structure and function. Doppler and Color Flow revealed trace tricuspid regurgitation with an estimated PAP of 27 mmHg. There is no tricuspid valve stenosis. PULMONIC VALVE The pulmonic valve is not well visualized. Doppler and Color Flow revealed no pulmonic valvular regurgitation. There is no pulmonic valvular stenosis. GREAT VESSELS The aortic root is normal in size. The IVC is normal in size and collapses >50% with inspiration. PERICARDIAL EFFUSION There is no evidence of significant pericardial effusion. Critical Notification Critical Value: No <Conclusion> The left ventricular systolic function is mildly decreased. EF 45-50% Septal motion consistent with conduction abnormality. Otherwise, mild global hypokinesis. Signed by : Sergio Rao, Electronically Approved : 11/10/2019 16:46:24 DICTATED and SIGNED BY: SERGIO RAO MD DATE: 11/10/19 1642 Discharge Information Condition at Discharge: Improved Follow Up: Weeks Disposition/Orders: D/C to Home Scheduled Aspirin (Aspirin) 81 Mg Tab.chew, 1 TAB PO DAILY for HH, #30 Ref 3 (Reported) Entered as Reported by: CLEMENT RAPHAEL on 11/10/191336 Last Action: Continued on 11/10/191427 by NICOLE CORONEL APRN Atorvastatin Calcium (Lipitor) 80 Mg Tablet, 1 TAB PO DAILY for HLD, #30 Ref 5 (Reported) Entered as Reported by: CLEMENT RAPHAEL on 11/10/191336 Last Action: Converted on 11/10/191427 by NICOLE CORONEL APRN Clopidogrel Bisulfate (Plavix) 75 Mg Tablet, 75 MG PO DAILY for TO PREVENT BLOOD CLOTS for 30 Days, Ref 0 (Reported) Entered as Reported by: Kaya Garcia on 08/05/13 1257 Last Action: Reviewed on 11/10/191336 by CLEMENT RAPHAEL Omeprazole (Omeprazole) 20 Mg Tablet.dr, 20 MG PO DAILY, (Reported) Entered as Reported by: Mica Tucker on 07/30/13 1732 Last Action: Reviewed on 11/10/191336 by CLEMENT RAPHAEL Tamsulosin Hcl (Flomax) 0.4 Mg Cap.er.24h, 1 CAP PO DAILY for BPH, #30 Ref 11 (Reported) Entered as Reported by: CLEMENT RAPHAEL on 11/10/191336 Last Action: Continued on 11/10/191458 by CLEMENT RAPHAEL Turmeric/Turmeric Root Extract (Turmeric 500 mg Capsule) 1 Each Capsule, 1 CAP PO BID for pain for 30 Days, #60 Ref 0 (Reported) Entered as Reported by: CLEMENT RAPHAEL on 11/10/191337 Last Action: Converted on 11/10/191458 by CLEMENT RAPHAEL Justicifation of Admission Dx: Justifications for Admission: Justification of Admission Dx: Yes (CHEST PAIN, LOREN) KOREY JARA MD Nov 11, 2019 12:16
== END 2019-11-11 12:15 | disposition home or self-care (01) ==
LOC: ER 09:56 → 2 NORTH 12:00
PROVIDERS: ADMIT Internal Medicine; ATTEND Internal Medicine
DX: R07.89 Other chest pain (principal); I10 Essential (primary) hypertension; I25.10 Atherosclerotic heart disease of native coronary artery without angina pectoris; I42.9 Cardiomyopathy, unspecified; E78.5 Hyperlipidemia, unspecified; E78.00 Pure hypercholesterolemia, unspecified; R00.1 Bradycardia, unspecified; M19.90 Unspecified osteoarthritis, unspecified site; K29.70 Gastritis, unspecified, without bleeding; Z90.49 Acquired absence of other specified parts of digestive tract; Z95.1 Presence of aortocoronary bypass graft; Z87.891 Personal history of nicotine dependence; Z87.442 Personal history of urinary calculi
CPT/HCPCS: 36415; 71045; 80053; 80061; 83690; 83735; 83880; 84443; 84484; 85025; 85379; 85610; 93005; 93306; 94760; 99285; G0378; G0379